=== PATIENT | female | born 1935 | race Caucasian/White ===

== ENCOUNTER → 2016-10-14 | Outpatient (CLI) | payer OTHER ==
[~2016-10-14] MED LIST: ALBUTEROL MININEB NEB; ALBUTEROL SULF8.5 G1 IH; ALPRAZOLAM PO; ALPRAZOLAM0.25 MG PO; ANEXSIA 7.5/3251 TA1 PO; ASPIRIN81 M1 PO; ASPIRIN81 M2 PO; ASPIRIN81 MG PO; ATORVASTATIN CA10 MG PO; BENTYL10 MG PO; CALCIUM + D 6001 TA1 PO; CALCIUM 500 + D1 TAB PO; CALCIUM500 MG PO; CARAFATE1 G PO; CARAFATE1 GM PO; CELEXA PO; CELEXA10 MG PO; CELEXA20 MG PO; CENTRUM PO; CERTAGEN PO; COLACE PO; COMBIVENT INH14.7 G1 IH; COMBIVENT U/D3 M2 INH; CRESTOR PO; DEXILANT60 MG PO; HCTZ PO; HYDROCHLOROTH12.5 MG PO; KCL PO; KLOR-CON PO; LASIX20 MG PO; LISINOPRIL20 MG PO; LORTAB 7.5-3251 EACH PO; MILK OF MAGNESIA PO; MOTRIN400 M1 PO; MULTI VITAMIN1 EACH PO; NEXIUM PO; NORVASC10 MG PO; OCUVITE TABLET1 TA1 PO; OS-CAL 500500 MG PO; PREDNISONE10 MG PO; PREVACID PO; PRILOSEC PO; PRILOSEC20 MG PO; PRILOSEC40 MG PO; PRINIVIL10 MG PO; STOOL SOFTENER100 M1 PO; SYMBICORT INH; TEKTURNA HCT 151 TA1 PO; THEO-DUR300 MG PO; THEOPHYLLIN PO; TOPROL XL PO; VIBRAMYCIN100 M1 PO; VICODIN 5-3001 EACH PO; VOLTAREN75 MG PO; XANAX0.5 M1 PO; ZETIA PO
--- NOTE | ~2016-10-14 | CR230 ---
[facility] A Service of [facility] RADIOLOGY TEXT RESULTS PATIENT: ELKIN CRAFT LOCATION: [facility] : 33 UNIT #: [id number] AGE: [address]: Helio Enciso SEX: F ORDER DR: [id number] [facility] [address] [place], [place] [address] [id number] O MR#: [id number] Acc #: [id number] NAME: ELKIN CRAFT. : 1935 SEX: F STUDY DATE/TIME: 10/14/2016 13:59 UNIT: [facility] ROOM: STUDY DESCRIPTION: CR Shoulder Min 2 View Rt Attending Physician: Helio Enciso M.D. Referring Physician: Helio Enciso M.D. Ordering Physician: Helio Enciso M.D. Primary Care Physician: Virgilio Elmore Jr., M.D. MEDICAL IMAGING REPORT This report is preliminary unless electronic signature is present EXAM 3 views right shoulder DATE 10/14/2016 HISTORY 81-year-old female with right shoulder pain and difficulty moving shoulder for 1 year. History of 2 prior rotator cuff repairs. COMPARISON Right shoulder radiographs 10/11/2015. FINDINGS There is marked loss of the normal glenohumeral joint space with articular sclerosis. There is flattening of the articular surface of the humeral head, with marginal osteophyte formation. Surgical anchor is demonstrated within the superior margin of the humeral head. No acute fracture or joint dislocation is seen. No significant AC joint arthropathy is evident. No acromioclavicular or coracoclavicular separation is evident. Osteopenic changes are present. Imaged right lung apex appears clear. Imaged right ribs appear intact. Suspected bilateral carotid bulb calcifications in the imaged neck. IMPRESSION 1. 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 2. Surgical anchor in the right humerus consistent with the provided history of rotator cuff repair. 3. No acute findings. [facility] A Service of [facility] RADIOLOGY TEXT RESULTS PATIENT: ELKIN CRAFT [facility] #: [id number] : 33 UNIT #: [id number] AGE: [address]: Helio Enciso SEX: F ORDER DR: Dictated by... Jeanie Harris M.D. THIS IS AN ELECTRONICALLY VERIFIED REPORT Jeanie Harris M.D. at 10/16/2016 7:14 AM [facility]/edgard TD: 10/14/2016 16:02 JOB #: [id number] MEDICAL IMAGING REPORT Page 1 of 1 COPY
== END | disposition home or self-care (01) ==
LOC: CRAD 13:40
DX: M25.511 Pain in right shoulder (principal); M25.811 Other specified joint disorders, right shoulder; Z98.890 Other specified postprocedural states
CPT/HCPCS: 73030